=== PATIENT | male | born 1980 | race Caucasian/White ===

== ENCOUNTER 2016-11-14 02:23 | Emergency (ER) | payer OTHER ==
[2016-11-14] MEDS ORDERED: Alum Hydroxide/Mag Hydroxide 15 ML, Lidocaine 2% 15 ML PO ONE ×2 (02:40)
[2016-11-14] MEDS ORDERED: Nitroglycerin 0.4 MG Tab.SL SL ONE (03:18)
[2016-11-14 03:32] VITALS: BP 146/87
--- NOTE | 2016-11-14 04:10 | ER ---
DATE SEEN: 11/14/2016 CHIEF COMPLAINT: Chest pain. 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 Symptoms started suddenly and woke him up. PAST MEDICAL HISTORY: No active medical problems. SOCIAL HISTORY: Exercises daily. He does not smoke or drink. FAMILY HISTORY: No history of coronary artery disease in the family. MEDICATIONS: None. PAST MEDICAL HISTORY: Anxiety. PHYSICAL EXAMINATION: VITAL SIGNS: Initial blood pressure was 200/102, pulse is 68, and temp 98. EARS, NOSE, and THROAT: Negative. NECK: Supple. No carotid bruits. CHEST: Clear. CARDIOVASCULAR: Normal. RESPIRATORY: Normal. ABDOMEN: Soft and benign. LABORATORY DATA: Labs were negative. EKG normal sinus rhythm. Chest x-ray was unremarkable. IMPRESSION: 1. Chest pain. 2. Elevated blood pressure. PLAN: I gave him GI cocktail initially. Symptoms improved marginally. I did give nitroglycerin which helped his symptoms and blood pressure. He was pain- free by the time of discharge at 0345 hours. I advised him to see Dr. Caballero within 72 hours for stress test. Return to the ED with any worsening of symptoms. /[id number] KATT/CAROLA
--- NOTE | 2016-11-15 10:45 | CR ---
INDICATION: Chest pain, mid sternal. CHEST: PA and lateral views of the chest revealed the heart to be at the upper limits of normal in size with no specific chamber enlargement. Mediastinum was otherwise unremarkable. A very minimal dextroconcave scoliosis of the lower middle thoracic spine is noted. An active infiltrate or effusion was not identified. Overlying EKG leads are noted. IMPRESSION: Heart at the upper limits of normal in size. Chest otherwise unremarkable. MTDD
== END 2016-11-14 03:50 | disposition home or self-care (01) ==
LOC: FB.ED 02:23
DX: R07.9 Chest pain, unspecified (principal); R03.0 Elevated blood-pressure reading, without diagnosis of hypertension; F41.9 Anxiety disorder, unspecified
CPT/HCPCS: 36415; 71020; 80053; 82550; 84484; 85025; 85379; 93005; 99285; A9270